=== PATIENT | male | born 1960 | race Caucasian/White ===

== ENCOUNTER 2017-10-02 10:48 | Emergency (ER) | payer OTHER ==
[~2017-10-02] VITALS: Ht 170.2 cm; Wt 69.0 kg
[2017-10-02] MEDS ORDERED: LEVO100T9 PO (11:15)
[2017-10-02] MEDS ORDERED: IPRATROPIUM/ALBUTEROL 0.5-3(2.5)MG/3ML NEB HHN ONE (11:15)
[2017-10-02] MEDS ORDERED: DEXA4TAB PO (11:16)
[2017-10-02] MEDS ORDERED: OXYC5CAP12 PO (11:17)
[2017-10-02] MEDS ORDERED: LEVE1000 PO (11:17)
[2017-10-02] MEDS ORDERED: DOCU-150 PO (11:18)
[2017-10-02] MEDS ORDERED: SODIUM CHLORIDE 0.9% 500 ML IV ONE (11:30)
[2017-10-02 11:40] LABS: BG BASE EXCESS -1.5 mmol/L (-2.0-2.0); BG DEOXYHEMOGLOBIN 7.1 % (0.0-5.0); BG FRACTION INSPIRED OXYGEN 28; BG HCO3 ACT 19.3 mmol/L (22.0-26.0); BG METHEMOGLOBIN 0.3 % (0.0-1.5); BG OXYGEN SATURATION 92.8 % (92.0-98.5); BG OXYHEMOGLOBIN 91.6 % (94.0-97.0); BG PCO2 24.2 mmHg (35.0-45.0); BG PH 7.519 (7.350-7.450); BG PO2 61.6 mmHg (75.0-100.0); BG SAMPLE SITE RIGHT RADIAL; BG TOTAL HEMOGLOBIN 15.8 g/dL (12.0-18.0); BG VENT MODE NASAL CANNULA
[2017-10-02 11:52] LABS: HEMATOCRIT. 43.8 % (42.0-52.0); HEMOGLOBIN. 14.8 g/dL (14.0-18.0); MEAN CORPUSCULAR HEMOGLOBIN 27.5 pg (28.0-32.0); MEAN CORPUSCULAR VOLUME 81.4 fL (80.0-94.0); PLATELET 296 x1000/uL (130-400); RED BLOOD CELL COUNT 5.38 mill/uL (4.7-6.1); RED CELL DISTRIBUTION WIDTH 19.6 % (11.6-14.6)
[2017-10-02 12:00] LABS: INR 1.1; PROTHROMBIN TIME 11.3 sec (9.4-11.6)
[2017-10-02 12:09] LABS: CARBON DIOXIDE 25 mEq/L (21-32); CHLORIDE 94 mEq/L (98-107)
[2017-10-02 12:11] LABS: TROPONIN I < 0.02 ng/mL (0.00-0.04)
[2017-10-02 12:15] LABS: PLATELET ESTIMATE NORMAL
[2017-10-02 17:00] VITALS: BP 129/93
== END 2017-10-02 17:05 | disposition home or self-care (01) ==
LOC: ER 10:48
DX: C71.9 Malignant neoplasm of brain, unspecified (principal); R06.02 Shortness of breath; E87.3 Alkalosis; E86.0 Dehydration; E87.2 Acidosis; E87.70 Fluid overload, unspecified; D72.829 Elevated white blood cell count, unspecified; E87.1 Hypo-osmolality and hyponatremia; E87.8 Other disorders of electrolyte and fluid balance, not elsewhere classified; R73.9 Hyperglycemia, unspecified; R53.1 Weakness; E78.4 Other hyperlipidemia
CPT/HCPCS: 36415; 36600; 71010; 80053; 82375; 82805; 83036; 83880; 84484; 85025; 85610; 87040; 93005; 94640; 96360; 96361; 99285; J7040; J7620; Z7610